=== PATIENT | female | born 1975 | race Caucasian/White ===

== ENCOUNTER → 2016-07-04 | Outpatient (CLI) | payer BC | LOC: LAB.O 13:59 | PROVIDERS: ATTEND Nurse Practitioner Family | DX: I10 Essential (primary) hypertension (principal) ==

== ENCOUNTER → 2016-07-10 | Outpatient (CLI) | payer BC | LOC: RESP 10:12 | PROVIDERS: ATTEND Nurse Practitioner Family | DX: R42 Dizziness and giddiness (principal) ==

== ENCOUNTER 2019-04-25 10:12 | Emergency (ER) | payer BC, OTHER ==
[2019-04-25] MEDS ORDERED: TETANUS,DIPHTHERIA,PERTUSSIS 1 EA SYG IM ONE (10:26)
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
[2019-04-25 10:59] VITALS: BP 196/107; TEMP 98.5; O2SAT 97
== END 2019-04-25 10:50 | disposition home or self-care (01) ==
LOC: ER 10:12
DX: S01.511A Laceration without foreign body of lip, initial encounter (principal); I10 Essential (primary) hypertension; E11.9 Type 2 diabetes mellitus without complications; E07.9 Disorder of thyroid, unspecified; Z79.899 Other long term (current) drug therapy; V40.5XXA Car driver injured in collision with pedestrian or animal in traffic accident, initial encounter; Y92.411 Interstate highway as the place of occurrence of the external cause

== ENCOUNTER 2020-04-05 23:04 | Emergency (ER) | payer SELFPAY ==
[2020-04-05] MEDS ORDERED: cloNIDine HCL 0.1 MG TAB PO ONE (23:26)
[2020-04-05 23:27] VITALS: TEMP 96.9
--- NOTE | 2020-04-05 23:42 | ED.PDOC ---
History of Present Illness - General Chief Complaint: Blood Pressure Problem Stated Complaint: high bp and feeling ill Time Seen by Provider: 04/05/20 23:18 Source: patient Exam Limitations: no limitations - History of Present Illness Initial Comments: BEEN FEELING POORLY AND HBP THE PAST 2 WKS (LIGHT HEADEDNESS, BUTCHER'S, NAUSEA). HOME BP READINGS PAST 2 WKS RANGE 160-200 SYSTOLIC OVER 101-112 DIASTOLIC. WENT TO PCP THIS AM AND GOT STARTED ON VALSARTAN/HCTZ. STILL HAVING HTN TONIGHT AND SAME SX TONIGHT BUT NO HEADACHE. CAME TO ER TO GET CONTROL OF BP AND ENSURE BP IS NOT CAUSING ACUTE HEALTH PROBLEMS. DENIES CP/SOB. USED TO TAKE ARMOUR THYROID AND HTN MED BUT NOT FOR PAST YEAR. Timing/Duration: intermittent Severity: moderate Improving Factors: nothing Worsening Factors: nothing Associated Symptoms: headaches, nausea/vomiting Allergies/Adverse Reactions: Allergies NO KNOWN ALLERGY Allergy (Verified 04/25/19 10:35) Home Medications: Ambulatory Orders [facility] Thyroid 08/08/15 Hydrochlorothiazide 08/08/15 Lisinopril 08/08/15 Meloxicam [Mobic] 7.5 mg PO DAILY PRN #10 tab 08/08/15 Metformin HCl 08/08/15 Clonidine HCl [Clonidine Hydrochloride] 0.2 mg PO BID PRN #30 tab 04/06/20 Review of Systems - Review of Systems Constitutional: Denies: chills, fever EENTM: States: other - NO FACIAL WEAKNESS. . Denies: eye pain, blurred vision Respiratory: Denies: cough, short of breath Cardiology: Denies: chest pain, palpitations Gastrointestinal/Abdominal: Denies: abdominal pain, nausea Genitourinary: States: no symptoms reported Musculoskeletal: States: other - NO WEAKNESS OF EXTREMITIES (NO STROKE CONCERNS). . Denies: back pain, neck pain Skin: States: no symptoms reported Neurological: States: headache - BUT NONE IN ER TONIGHT. . Denies: par esthesia, tremors, weakness Endocrine: States: flushing - MILD FACIAL FLUSHED SENSATION. Denies: excessive sweating Hematologic/Lymphatic: Denies: easy bleeding, easy bruising All other Systems: Reviewed and Negative Past Medical History (General) - Patient Medical History Hx Seizures: No Hx Stroke: No Hx Dementia: No Hx Asthma: No Hx of COPD: No Hx Cardiac Disorders: No Hx Congestive Heart Failure: No Hx Pacemaker: No Hx Hypertension: Yes Hx Thyroid Disease: Yes Hx Diabetes: Yes Hx Gastroesophageal Reflux: No Hx Renal Disease: No Hx Cancer: No Hx of HIV: No Hx Hepatitis C: No Hx MRSA: No Surgical History: tonsillectomy, other - Vaccination History Hx Tetanus, Diphtheria Vaccination: No Hx Influenza Vaccination: No Hx Pneumococcal Vaccination: No Immunizations Up to Date: No - Social History Hx Tobacco Use: No Hx Chewing Tobacco Use: No Hx Alcohol Use: No Hx Substance Use: No Hx Substance Use Treatment: No Hx Depression: No Feels Threatened In Home Enviroment: No Feels Threatened In a Relationship: No Hx Physical Abuse: No Hx Emotional Abuse: No Hx Suspected Abuse: No - Activities of Daily Living Hospice Agency (if applicable):: None - Female History Patient is a Female of Child Bearing Age (10 -59 yrs old): Yes Patient : No - states no Family Medical History - Family History Mother Family History: Unknown Physical Exam - Physical Exam General Appearance: Alert, No apparent distress Eye Exam: bilateral normal Ears, Nose, Throat: normal ENT inspection, normal pharynx Neck: full range of motion, supple, other - NO CAROTID BRUIT. NO JVD. Respiratory: lungs clear, normal breath sounds, no respiratory distress, no accessory muscle use Cardiovascular/Chest: normal peripheral pulses, regular rate, rhythm, no edema, no gallop, no JVD, no murmur Peripheral Pulses: radial,right: 2+, radial,left: 2+ Gastrointestinal/Abdominal: normal bowel sounds, non tender, soft Rectal Exam: deferred Back Exam: no CVA tenderness Extremity: normal range of motion, non-tender, normal capillary refill, pedal edema - TRACE PRETIBIAL EDEMA. Neurologic: assembler trim II-XII nml as tested, no motor/sensory deficits, alert, normal mood/affect, oriented x 3 Skin Exam: normal color, warm/dry Lymphatic: no adenopathy Progress - Results/Orders Results/Orders: NO ACUTE STROKE CONCERNS (NO WEAKNESS OF EXTREMITIES, FACIAL MUSCLES, NOR DYSARTHRIA). EKG NSR. BMP - Na 133. K+ 3.2. GLUC 235. CBC - MILD ANEMIA, MICROCYTIC (LOW MCV), ELEV RDW. FURTHER W/U INDICATED. UA - GLUCOSURIA. NO KETONES. HYPERTENSIVE URGENCY - NO END ORGAN DAMAGE (BUN, CR WNL). BP DECREASED BY 17% (GUIDELINES INDICATE TO DECR ACUTELY BY LESS THAN 25%) WITH CLONIDINE 0.2 mg, FROM 211/108 TO 175/98 MALIGNANT HTN - CONTINUE THE DIOVAN STARTED BY PCP TODAY. I AM RX'ING CLONIDINE 0.2 MG BID PRN SBP GREATER THAN 160, UNTIL SEES PCP. F/U WITH PCP TOMORROW FOR BP RECHECK AND MED ADJUSTMENT, WELL HYPOTHYROIDISM (TSH 7.18), DM (GLUCOSE 235), AND MICROCYTIC ANEMIA WITH ABLN SMEAR. SAFE FOR DC TO HOME. - EKG/XRAY/CT EKG: Sinus, no ST T wave changes Departure - Departure Clinical Impression: Nausea, Light-headedness, Hypertensive urgency, Hyponatremia, Hypokalemia, Hyperglycemia due to diabetes mellitus, Microcytic anemia Hypothyroidism Qualifiers: Hypothyroidism type: unspecified Qualified Code(s): E03.9 - Hypothyroidism, unspecified Disposition: Discharge to Home or Self Care Condition: Good Departure Forms: ED Discharge - Pt. Copy, Patient Portal Self Enrollment Instructions: DI for High Blood Pressure, High Blood Pressure in Adults, Metabolic Syndrome Diet: low salt diet Activity: increase activity as tolerated Prescriptions: Clonidine HCl [Clonidine Hydrochloride] 0.2 mg PO BID PRN #30 tab PRN Reason: Hypertension Home Medications: Ambulatory Orders [facility] Thyroid 08/08/15 Hydrochlorothiazide 08/08/15 Lisinopril 08/08/15 Meloxicam [Mobic] 7.5 mg PO DAILY PRN #10 tab 08/08/15 Metformin HCl 08/08/15 Clonidine HCl [Clonidine Hydrochloride] 0.2 mg PO BID PRN #30 tab 04/06/20 Additional Instructions: Please continue taking your daily Valsartan/HCTZ, as prescribed. Please take the prescribed medication as needed until you follow-up with your regular doctor. Please follow up with your regular doctor within 1 week for blood pressure and medication recheck, diabetes control, hypothyroidism, and mild anemia.
[2020-04-06 00:58] VITALS: BP 170/86; O2SAT 94
== END 2020-04-06 00:58 | disposition home or self-care (01) ==
LOC: ER 23:04
DX: I16.0 Hypertensive urgency (principal); R11.0 Nausea; R42 Dizziness and giddiness; E87.1 Hypo-osmolality and hyponatremia; E87.6 Hypokalemia; E11.65 Type 2 diabetes mellitus with hyperglycemia; D50.9 Iron deficiency anemia, unspecified; E03.9 Hypothyroidism, unspecified; Z79.84 Long term (current) use of oral hypoglycemic drugs; Z79.899 Other long term (current) drug therapy